=== PATIENT | female | born 1955 | race Caucasian/White ===

== ENCOUNTER 2020-10-22 04:18 | Inpatient (IN) ==
[2020-10-22] MEDS ORDERED: Melatonin 3 MG TABLET PO PRN (10:27)
[2020-10-22] MEDS ORDERED: Ondansetron 4 MG/2 ML VIAL IVP PRN (10:27)
[2020-10-22] MEDS ORDERED: D5% in Water 1,000 ML IVC PRN (10:32)
[2020-10-22] MEDS ORDERED: Dextrose Gel 15 GM/37.5 ML TUBE PO PRN ×2 (10:32)
[2020-10-22] MEDS ORDERED: *HR* Dextrose 50 % in Water (Vial) 50 ML VIAL IVP PRN (10:32)
[2020-10-22 11:30] LABS: Prothrombin Time 11.9 Seconds (9.4-12.1)
[2020-10-22 11:44] LABS: BUN/Creatinine Ratio 25 (6-26); Blood Urea Nitrogen 16 mg/dL (8-23); Carbon Dioxide 26 mEq/L (23-29); Chloride 107 mEq/L (98-107); Glucose 314 mg/dL (70-105); Magnesium 1.7 mg/dL (1.6-2.6); Osmolality,Calculated 303 (280-300); Phosphorous 2.8 mg/dL (2.7-4.5); Sodium 140 mEq/L (136-145); eGFR For African Americans > 60 (> 60); eGFR For Non-African Americans > 60 (> 60)
[2020-10-22] MEDS: Insulin LISPRO 300 UNITS/3 ML VIAL SUBQ SCH ×2 (12:15→17:02)
[2020-10-22] MEDS ORDERED: *HR* FentaNYL (PF) 100 MCG/2 ML VIAL IVP PRN (12:44)
[2020-10-22] MEDS ORDERED: *HR* Vasopressin 20 UNIT/ML VIAL ONE (12:47)
[2020-10-22 13:46] LABS: Influenza A PCR Negative (Negative); Influenza B PCR Negative (Negative); Resp. Syncytial Virus PCR Negative (Negative)
[2020-10-22 13:47] LABS: SARS-CoV-2 by PCR (In House) Negative (Negative)
[2020-10-22] MEDS ORDERED: *HR* Propofol 200 MG/20 ML VIAL IVP ONE (13:53)
[2020-10-22] MEDS ORDERED: Lidocaine -MPF 2% 2 ML VIAL ONE (13:53)
[2020-10-22 15:30] LABS: Hematocrit 17.9 % (35.3-44.9); Immature Platelets 6.5 % (1.1-6.1); Mean Corpuscular HGB Conc 27.4 g/dL (31.6-35.5); Mean Corpuscular Hemoglobin 25.1 pg (28.0-33.3); Mean Corpuscular Volume 91.8 fL (83.0-100.0); Mean Platelet Volume 11.2 fL (9.4-12.4); Red Blood Count 1.95 M/mcL (3.82-4.97); Red Cell Distribution Width 17.7 % (11.5-14.5); White Blood Count 4.5 K/mcL (4.3-11.1)
[2020-10-22 15:36] LABS: Hemoglobin 4.9 g/dL (11.5-15.4)
[2020-10-22] MEDS: Gabapentin 300 MG CAPSULE PO SCH ×2 (15:40→22:06)
[2020-10-22] MEDS: Pantoprazole 40 MG VIAL IVP SCH (17:00)
[2020-10-22] MEDS ORDERED: SODIUM CHLORIDE/NAHCO3/KCL/PEG 4,000 ML SOLN.RECON PO ONE (17:00)
[2020-10-22 17:20] LABS: Hemoglobin 5.8 g/dL (11.5-15.4)
[2020-10-22] MEDS ORDERED: 0.9 % Sodium Chloride 250 ML ONE (18:20)
[2020-10-22] MEDS: Acetaminophen 325 MG TABLET PO PRN (22:06)
[2020-10-22] MEDS: traZODone 50 MG TABLET PO SCH (22:06)
[2020-10-22] MEDS: Insulin DETEMIR 100 UNIT/ML X5UNITS SUBQ SCH (22:12)
[2020-10-23] MEDS: Insulin LISPRO 300 UNITS/3 ML VIAL SUBQ SCH ×4 (01:43→16:58)
[2020-10-23 04:55] LABS: Hematocrit 19.7 % (35.3-44.9); Mean Corpuscular HGB Conc 29.9 g/dL (31.6-35.5); Mean Corpuscular Hemoglobin 26.7 pg (28.0-33.3); Mean Corpuscular Volume 89.1 fL (83.0-100.0); Platelet Count 120 K/mcL (140-400); Red Blood Count 2.21 M/mcL (3.82-4.97); Red Cell Distribution Width 19.9 % (11.5-14.5); White Blood Count 3.5 K/mcL (4.3-11.1)
[2020-10-23 04:57] LABS: Hemoglobin 5.9 g/dL (11.5-15.4)
[2020-10-23] MEDS ORDERED: 0.9 % Sodium Chloride 250 ML ONE (05:50)
[2020-10-23] MEDS: Pantoprazole 40 MG VIAL IVP SCH ×2 (05:53→18:26)
[2020-10-23 06:38] LABS: BUN/Creatinine Ratio 23 (6-26); Blood Urea Nitrogen 10 mg/dL (8-23); Carbon Dioxide 24 mEq/L (23-29); Chloride 118 mEq/L (98-107); Glucose 114 mg/dL (70-105); Osmolality,Calculated 296 (280-300); Sodium 143 mEq/L (136-145); eGFR For African Americans > 60 (> 60); eGFR For Non-African Americans > 60 (> 60)
[2020-10-23] MEDS: Acetaminophen 325 MG TABLET PO PRN (06:59)
[2020-10-23 07:00] LABS: Calcium 5.5 mg/dL (8.6-10.3)
[2020-10-23] MEDS: Insulin DETEMIR 100 UNIT/ML X5UNITS SUBQ SCH ×2 (09:11→22:35)
[2020-10-23] MEDS ORDERED: Calcium Gluconate 1gm/50mL 1 GM/50 ML BAG IVPB PRN (09:12)
[2020-10-23] MEDS: Gabapentin 300 MG CAPSULE PO SCH ×3 (09:15→22:35)
[2020-10-23 09:33] LABS: Magnesium 1.2 mg/dL (1.6-2.6); Phosphorous 1.8 mg/dL (2.7-4.5)
[2020-10-23 10:59] LABS: Hematocrit 25.9 % (35.3-44.9); Hemoglobin 7.3 g/dL (11.5-15.4)
[2020-10-23 11:22] LABS: Albumin 2.9 g/dL (3.5-5.7); Albumin/Globulin Ratio 1.2 (1.1-2.2); Bilirubin,Direct 0.3 mg/dL (0.0-0.2); Bilirubin,Indirect 0.6 mg/dL (0.0-1.0); Bilirubin,Total 0.9 mg/dL (0.3-1.0); Globulin 2.4 g/dL (2.4-3.5); Total Protein 5.3 g/dL (6.4-8.9)
[2020-10-23] MEDS ORDERED: *HR* Succinylcholine 200 MG/10 ML VIAL IVP ONE ×2 (13:45→15:28)
[2020-10-23] MEDS ORDERED: Lidocaine -MPF 2% 2 ML VIAL ONE ×2 (13:45→13:52)
[2020-10-23] MEDS ORDERED: Lidocaine -MPF 2% 5 ML VIAL ONE (15:28)
[2020-10-23] MEDS: *HR* OxyCODONE/APAP 5/325 TABLET PO PRN ×2 (16:17→22:35)
[2020-10-23] MEDS: traZODone 50 MG TABLET PO SCH (22:35)
[2020-10-24] MEDS: Pantoprazole 40 MG VIAL IVP SCH ×2 (05:37→16:47)
[2020-10-24] MEDS: *HR* OxyCODONE/APAP 5/325 TABLET PO PRN ×3 (05:37→22:54)
[2020-10-24 06:27] LABS: Hematocrit 24.1 % (35.3-44.9); Hemoglobin 6.9 g/dL (11.5-15.4); Mean Corpuscular HGB Conc 28.6 g/dL (31.6-35.5); Mean Corpuscular Hemoglobin 26.5 pg (28.0-33.3); Mean Corpuscular Volume 92.7 fL (83.0-100.0); Mean Platelet Volume 10.8 fL (9.4-12.4); Platelet Count 142 K/mcL (140-400); Red Cell Distribution Width 17.4 % (11.5-14.5); White Blood Count 5.2 K/mcL (4.3-11.1)
[2020-10-24 06:55] LABS: Alanine Aminotransferase 12 Units/L (7-52); Albumin 2.7 g/dL (3.5-5.7); Albumin/Globulin Ratio 1.1 (1.1-2.2); Alkaline Phosphatase 57 Units/L (34-104); Aspartate Amino Transferase 13 Units/L (13-39); BUN/Creatinine Ratio 18 (6-26); Bilirubin,Total 0.8 mg/dL (0.3-1.0); Blood Urea Nitrogen 14 mg/dL (8-23); Calcium 7.5 mg/dL (8.6-10.3); Carbon Dioxide 32 mEq/L (23-29); Chloride 107 mEq/L (98-107); Globulin 2.4 g/dL (2.4-3.5); Glucose 264 mg/dL (70-105); Osmolality,Calculated 300 (280-300); Potassium 4.3 mEq/L (3.5-5.1); Sodium 140 mEq/L (136-145); Total Protein 5.1 g/dL (6.4-8.9); eGFR For African Americans > 60 (> 60); eGFR For Non-African Americans > 60 (> 60)
[2020-10-24] MEDS: Insulin LISPRO 300 UNITS/3 ML VIAL SUBQ SCH ×3 (08:20→16:46)
[2020-10-24] MEDS: Gabapentin 300 MG CAPSULE PO SCH ×5 (08:20→21:06)
[2020-10-24] MEDS: Insulin DETEMIR 100 UNIT/ML X5UNITS SUBQ SCH ×2 (08:22→21:07)
[2020-10-24] MEDS ORDERED: 0.9 % Sodium Chloride 250 ML IVC SCH (08:45)
[2020-10-24] MEDS ORDERED: 0.9 % Sodium Chloride 250 ML ONE (10:00)
[2020-10-24 18:00] LABS: Hematocrit 27.5 % (35.3-44.9); Hemoglobin 7.8 g/dL (11.5-15.4)
[2020-10-24] MEDS: traZODone 50 MG TABLET PO SCH (21:06)
[2020-10-24] MEDS: Magic Mouthwash 10 ML UD Cup PO SCH (22:24)
[2020-10-25] MEDS: Pantoprazole 40 MG VIAL IVP SCH ×2 (06:57→17:03)
[2020-10-25 06:58] LABS: Hematocrit 26.6 % (35.3-44.9); Hemoglobin 7.8 g/dL (11.5-15.4); Mean Corpuscular HGB Conc 29.3 g/dL (31.6-35.5); Mean Corpuscular Hemoglobin 26.7 pg (28.0-33.3); Mean Corpuscular Volume 91.1 fL (83.0-100.0); Mean Platelet Volume 10.7 fL (9.4-12.4); Platelet Count 129 K/mcL (140-400); Red Blood Count 2.92 M/mcL (3.82-4.97); Red Cell Distribution Width 17.6 % (11.5-14.5); White Blood Count 4.4 K/mcL (4.3-11.1)
[2020-10-25 07:57] LABS: Alanine Aminotransferase 9 Units/L (7-52); Albumin 2.7 g/dL (3.5-5.7); Alkaline Phosphatase 64 Units/L (34-104); Aspartate Amino Transferase 11 Units/L (13-39); BUN/Creatinine Ratio 24 (6-26); Bilirubin,Total 0.8 mg/dL (0.3-1.0); Blood Urea Nitrogen 17 mg/dL (8-23); Calcium 7.7 mg/dL (8.6-10.3); Carbon Dioxide 30 mEq/L (23-29); Chloride 105 mEq/L (98-107); Globulin 2.6 g/dL (2.4-3.5); Glucose 251 mg/dL (70-105); Osmolality,Calculated 302 (280-300); Potassium 4.1 mEq/L (3.5-5.1); Sodium 141 mEq/L (136-145); Total Protein 5.3 g/dL (6.4-8.9); eGFR For African Americans > 60 (> 60); eGFR For Non-African Americans > 60 (> 60)
[2020-10-25] MEDS: Gabapentin 300 MG CAPSULE PO SCH ×3 (08:40→21:58)
[2020-10-25] MEDS: Insulin DETEMIR 100 UNIT/ML X5UNITS SUBQ SCH ×2 (08:41→23:30)
[2020-10-25] MEDS: Magic Mouthwash 10 ML UD Cup PO SCH ×3 (08:41→17:10)
[2020-10-25] MEDS: Insulin LISPRO 300 UNITS/3 ML VIAL SUBQ SCH ×3 (08:41→17:04)
[2020-10-25] MEDS: *HR* OxyCODONE/APAP 5/325 TABLET PO PRN ×2 (10:06→17:10)
[2020-10-25] MEDS: Fluconazole 100 MG TABLET PO SCH (11:55)
[2020-10-25] MEDS: traZODone 50 MG TABLET PO SCH (21:58)
[2020-10-26] MEDS: *HR* OxyCODONE/APAP 5/325 TABLET PO PRN ×2 (00:11→08:00)
[2020-10-26 06:08] LABS: Hematocrit 27.5 % (35.3-44.9); Hemoglobin 8.2 g/dL (11.5-15.4); Mean Corpuscular HGB Conc 29.8 g/dL (31.6-35.5); Mean Corpuscular Volume 90.5 fL (83.0-100.0); Mean Platelet Volume 10.7 fL (9.4-12.4); Platelet Count 135 K/mcL (140-400); Red Blood Count 3.04 M/mcL (3.82-4.97); Red Cell Distribution Width 17.4 % (11.5-14.5); White Blood Count 4.4 K/mcL (4.3-11.1)
[2020-10-26 06:18] LABS: BUN/Creatinine Ratio 25 (6-26); Blood Urea Nitrogen 15 mg/dL (8-23); Calcium 8.1 mg/dL (8.6-10.3); Carbon Dioxide 33 mEq/L (23-29); Chloride 107 mEq/L (98-107); Glucose 226 mg/dL (70-105); Osmolality,Calculated 296 (280-300); Potassium 4.1 mEq/L (3.5-5.1); Sodium 139 mEq/L (136-145); eGFR For African Americans > 60 (> 60); eGFR For Non-African Americans > 60 (> 60)
[2020-10-26 07:26] VITALS: BP 123/70; PULSE 84; TEMP 97.8; O2SAT 91
[2020-10-26] MEDS: Pantoprazole 40 MG VIAL IVP SCH (07:50)
[2020-10-26] MEDS: Insulin LISPRO 300 UNITS/3 ML VIAL SUBQ SCH (07:50)
[2020-10-26] MEDS: Fluconazole 100 MG TABLET PO SCH (07:51)
[2020-10-26] MEDS: Gabapentin 300 MG CAPSULE PO SCH (07:51)
[2020-10-26] MEDS: Magic Mouthwash 10 ML UD Cup PO SCH (07:54)
[2020-10-26] MEDS: Insulin DETEMIR 100 UNIT/ML X5UNITS SUBQ SCH (07:54)
[2020-10-26 09:07] LABS: Adenovirus Not Detected (Not Detect); Bordetella Pertussis Not Detected (Not Detect); Chlamydophila pneumoniae Not Detected (Not Detect); Coronavirus 229E Not Detected (Not Detect); Coronavirus HKU1 Not Detected (Not Detect); Coronavirus NL63 Not Detected (Not Detect); Coronavirus OC43 Not Detected (Not Detect); Human Metapneumovirus Not Detected (Not Detect); Human Rhinovirus/Enterovirus Not Detected (Not Detect); Influenza A Subtype 2009 H1 Not Detected (Not Detect); Influenza B Not Detected (Not Detect); Mycoplasma pneumoniae Not Detected (Not Detect); Parainfluenza Virus 1 Not Detected (Not Detect); Parainfluenza Virus 2 Not Detected (Not Detect); Parainfluenza Virus 3 Not Detected (Not Detect); Parainfluenza Virus 4 Not Detected (Not Detect); Respiratory Syncytial Virus Not Detected (Not Detect); SARS-CoV-2 Not Detected (Not Detect)
== END 2020-10-26 09:05 | DRG 386 ==
LOC: 3ANU → SUATTDRO 10:05
PROVIDERS: ADMIT Family Medicine; ATTEND Internal Medicine

== ENCOUNTER 2020-10-29 12:29 | Observation (INO) ==
[2020-10-29] MEDS ORDERED: Naloxone 0.4 MG/ML INJ IVP PRN (17:35)
[2020-10-29] MEDS ORDERED: D5% in Water 1,000 ML IVC PRN (17:43)
[2020-10-29] MEDS ORDERED: *HR* Dextrose 50 % in Water (Vial) 50 ML VIAL IVP PRN (17:43)
[2020-10-29] MEDS ORDERED: Dextrose Gel 15 GM/37.5 ML TUBE PO PRN ×2 (17:43)
[2020-10-29] MEDS: Insulin LISPRO 300 UNITS/3 ML VIAL SUBQ SCH ×2 (18:07→21:38)
[2020-10-29] MEDS ORDERED: Isovue-370 500 ML BOTTLE IVP ONE (18:18)
[2020-10-29 18:53] LABS: Alanine Aminotransferase 9 Units/L (7-52); Albumin 2.8 g/dL (3.5-5.7); Albumin/Globulin Ratio 1.1 (1.1-2.2); Alkaline Phosphatase 66 Units/L (34-104); Aspartate Amino Transferase 21 Units/L (13-39); BUN/Creatinine Ratio 17 (6-26); Bilirubin,Total 0.9 mg/dL (0.3-1.0); Blood Urea Nitrogen 9 mg/dL (8-23); Calcium 8.1 mg/dL (8.6-10.3); Carbon Dioxide 31 mEq/L (23-29); Chloride 108 mEq/L (98-107); Globulin 2.6 g/dL (2.4-3.5); Glucose 192 mg/dL (70-105); Osmolality,Calculated 304 (280-300); Potassium 4.4 mEq/L (3.5-5.1); Sodium 145 mEq/L (136-145); Total Protein 5.4 g/dL (6.4-8.9); Troponin I < 0.03 ng/mL (< 0.04); eGFR For African Americans > 60 (> 60); eGFR For Non-African Americans > 60 (> 60)
[2020-10-29 20:02] LABS: Basophils % 0.3 %; Immature Granulocytes % 0.3 % (0-4); Monocytes % 9.1 %
[2020-10-29 20:03] LABS: Eosinophils # 0.1 K/mcL (0.0-0.6); Eosinophils % 1.6 %; Hematocrit 24.8 % (35.3-44.9); Hemoglobin 7.1 g/dL (11.5-15.4); Lymphocytes % 48.4 %; Mean Corpuscular HGB Conc 28.6 g/dL (31.6-35.5); Mean Corpuscular Hemoglobin 26.2 pg (28.0-33.3); Mean Corpuscular Volume 91.5 fL (83.0-100.0); Monocytes # 0.3 K/mcL (0.0-1.3); Neutrophils # 1.5 K/mcL (1.6-8.9); Platelet Count 114 K/mcL (140-400); Red Blood Count 2.71 M/mcL (3.82-4.97); Red Cell Distribution Width 17.9 % (11.5-14.5); Segmented Neutrophils % 40.3 %; White Blood Count 3.6 K/mcL (4.3-11.1)
[2020-10-29 20:10] LABS: Lymphocytes # 1.7 K/mcL (0.6-4.6)
[2020-10-29 20:42] LABS: % Iron Saturation 6 % (15-50); Ferritin 139 ng/mL (10-120); Iron 20 mcg/dL (50-170); Transferrin 227 mg/dL (203-362)
[2020-10-29 20:45] LABS: Anisocytosis 1+ (Not Present); Hypochromasia Present (Not Present); Microcytosis Present (Not Present); Platelet Estimate Slight Decrease (Normal)
[2020-10-29] MEDS: Iron Sucrose Complex 200 MG in 0.9 % Sodium Chloride 100 ML IVPB SCH (21:37)
[2020-10-29] MEDS: *HR* OxyCODONE/APAP 5/325 TABLET PO PRN (22:22)
[2020-10-29] MEDS: Pantoprazole 40 MG VIAL IVP SCH (22:22)
[2020-10-30] MEDS: Insulin LISPRO 300 UNITS/3 ML VIAL SUBQ SCH ×6 (01:21→23:43)
[2020-10-30 03:43] LABS: Basophils % 0.3 %; Eosinophils # 0.1 K/mcL (0.0-0.6); Eosinophils % 1.5 %; Hematocrit 23.7 % (35.3-44.9); Hemoglobin 6.5 g/dL (11.5-15.4); Immature Granulocytes % 0.3 % (0-4); Immature Platelets 3.8 % (1.1-6.1); Lymphocytes # 1.6 K/mcL (0.6-4.6); Lymphocytes % 47.3 %; Mean Corpuscular HGB Conc 27.4 g/dL (31.6-35.5); Mean Corpuscular Hemoglobin 25.1 pg (28.0-33.3); Mean Corpuscular Volume 91.5 fL (83.0-100.0); Mean Platelet Volume 9.6 fL (9.4-12.4); Monocytes # 0.3 K/mcL (0.0-1.3); Monocytes % 10.4 %; Neutrophils # 1.3 K/mcL (1.6-8.9); Platelet Count 112 K/mcL (140-400); Red Blood Count 2.59 M/mcL (3.82-4.97); Red Cell Distribution Width 17.9 % (11.5-14.5); Segmented Neutrophils % 40.2 %; White Blood Count 3.3 K/mcL (4.3-11.1)
[2020-10-30 04:02] LABS: Anisocytosis 1+ (Not Present); Hypochromasia Present (Not Present); Microcytosis Present (Not Present); Platelet Estimate Slight Decrease (Normal)
[2020-10-30 04:06] LABS: BUN/Creatinine Ratio 15 (6-26); Blood Urea Nitrogen 8 mg/dL (8-23); Calcium 7.8 mg/dL (8.6-10.3); Carbon Dioxide 34 mEq/L (23-29); Chloride 105 mEq/L (98-107); Glucose 150 mg/dL (70-105); Osmolality,Calculated 295 (280-300); Potassium 3.6 mEq/L (3.5-5.1); Sodium 142 mEq/L (136-145); eGFR For African Americans > 60 (> 60); eGFR For Non-African Americans > 60 (> 60)
[2020-10-30 04:07] LABS: Magnesium 1.5 mg/dL (1.6-2.6); Phosphorous 2.4 mg/dL (2.7-4.5)
[2020-10-30] MEDS ORDERED: 0.9 % Sodium Chloride 250 ML ONE (04:46)
[2020-10-30] MEDS: Pantoprazole 40 MG VIAL IVP SCH ×2 (05:53→18:14)
[2020-10-30] MEDS: Iron Sucrose Complex 200 MG in 0.9 % Sodium Chloride 100 ML IVPB SCH (09:48)
[2020-10-30] MEDS ORDERED: Furosemide 40 MG/4 ML VIAL IVP SCH (10:15)
[2020-10-30] MEDS: *HR* OxyCODONE/APAP 5/325 TABLET PO PRN (11:02)
[2020-10-30] MEDS ORDERED: Furosemide 40 MG/4 ML VIAL IVP ONE (11:06)
[2020-10-30 12:13] LABS: Hematocrit 27.6 % (35.3-44.9); Immature Platelets 6.2 % (1.1-6.1); Mean Corpuscular Hemoglobin 25.6 pg (28.0-33.3); Mean Corpuscular Volume 88.2 fL (83.0-100.0); Mean Platelet Volume 10.9 fL (9.4-12.4); Red Blood Count 3.13 M/mcL (3.82-4.97); Red Cell Distribution Width 17.4 % (11.5-14.5); White Blood Count 3.4 K/mcL (4.3-11.1)
[2020-10-30] MEDS ORDERED: Magnesium Oxide 400 MG TABLET PO PRN (13:33)
[2020-10-30] MEDS: Gabapentin 300 MG CAPSULE PO SCH ×2 (15:20→20:19)
[2020-10-30] MEDS: Ondansetron 4 MG/2 ML VIAL IVP PRN (17:23)
[2020-10-30] MEDS: Fluconazole 100 MG TABLET PO SCH (20:18)
[2020-10-30] MEDS ORDERED: traZODone 50 MG TABLET PO SCH (21:00)
[2020-10-31] MEDS: Pantoprazole 40 MG VIAL IVP SCH (05:32)
[2020-10-31] MEDS: Insulin LISPRO 300 UNITS/3 ML VIAL SUBQ SCH ×2 (05:33→11:51)
[2020-10-31] MEDS: *HR* OxyCODONE/APAP 5/325 TABLET PO PRN (05:40)
[2020-10-31 05:56] LABS: Basophils % 0.2 %; Eosinophils % 1.2 %; Hemoglobin 7.7 g/dL (11.5-15.4); Mean Corpuscular Hemoglobin 25.6 pg (28.0-33.3); Red Blood Count 3.01 M/mcL (3.82-4.97); Segmented Neutrophils % 52.2 %
[2020-10-31 05:58] LABS: Eosinophils # 0.1 K/mcL (0.0-0.6); Hematocrit 27.1 % (35.3-44.9); Immature Granulocytes % 0.7 % (0-4); Immature Platelets 5.5 % (1.1-6.1); Lymphocytes # 1.5 K/mcL (0.6-4.6); Lymphocytes % 35.2 %; Mean Corpuscular HGB Conc 28.4 g/dL (31.6-35.5); Mean Platelet Volume 10.6 fL (9.4-12.4); Monocytes # 0.4 K/mcL (0.0-1.3); Monocytes % 10.5 %; Neutrophils # 2.2 K/mcL (1.6-8.9); Platelet Count 104 K/mcL (140-400); Red Cell Distribution Width 17.9 % (11.5-14.5); White Blood Count 4.2 K/mcL (4.3-11.1)
[2020-10-31 06:03] LABS: BUN/Creatinine Ratio 14 (6-26); Blood Urea Nitrogen 11 mg/dL (8-23); Calcium 8.1 mg/dL (8.6-10.3); Carbon Dioxide 35 mEq/L (23-29); Chloride 103 mEq/L (98-107); Glucose 242 mg/dL (70-105); Osmolality,Calculated 299 (280-300); Sodium 141 mEq/L (136-145); eGFR For African Americans > 60 (> 60); eGFR For Non-African Americans > 60 (> 60)
[2020-10-31] MEDS: Fluconazole 100 MG TABLET PO SCH (07:39)
[2020-10-31] MEDS: Gabapentin 300 MG CAPSULE PO SCH ×2 (07:39→15:13)
[2020-10-31] MEDS: Ondansetron 4 MG/2 ML VIAL IVP PRN (07:42)
[2020-10-31] MEDS: Iron Sucrose Complex 200 MG in 0.9 % Sodium Chloride 100 ML IVPB SCH (09:12)
[2020-10-31 11:52] VITALS: BP 123/69; PULSE 72; TEMP 98.6; O2SAT 98
== END 2020-10-31 15:33 ==
LOC: 3BNU → SUATTDRO 14:38
PROVIDERS: ADMIT Pharmacist; ATTEND Student in an Organized Health Care Education/Training Program

== ENCOUNTER 2021-05-18 15:17 | Inpatient (IN) ==
[2021-05-18] MEDS ORDERED: Ondansetron 4 MG/2 ML VIAL IVP PRN (17:45)
[2021-05-18] MEDS ORDERED: Acetaminophen 325 MG TABLET PO PRN (17:45)
[2021-05-18] MEDS ORDERED: Dextrose Gel 15 GM/37.5 ML TUBE PO PRN ×2 (17:45)
[2021-05-18] MEDS ORDERED: *HR* Dextrose 50 % in Water (Syg) 50 ML SYRINGE IVP PRN (17:45)
[2021-05-18] MEDS ORDERED: Naloxone 0.4 MG/ML INJ IVP PRN (17:45)
[2021-05-18] MEDS ORDERED: D5% in Water 1,000 ML IVC PRN (17:45)
[2021-05-18] MEDS ORDERED: *HR* HYDROcodone/Acet 5/325 mg TABLET PO PRN (17:51)
[2021-05-18] MEDS: *HR* Heparin 5,000 UNIT/ML VIAL SQ SCH (17:53)
[2021-05-18] MEDS: *HR* OxyCODONE Immed Rel 5 MG TABLET PO PRN (18:06)
[2021-05-18] MEDS: *HR* HYDROmorphone 2 MG/ML SYRINGE IVP PRN (20:23)
[2021-05-18] MEDS: Insulin LISPRO 300 UNITS/3 ML VIAL SUBQ SCH (22:25)
[2021-05-18] MEDS: Insulin DETEMIR 100 UNIT/ML X5UNITS SUBQ SCH (22:25)
[2021-05-18] MEDS: Gabapentin 300 MG CAPSULE PO SCH (22:25)
[2021-05-19] MEDS: *HR* HYDROmorphone 2 MG/ML SYRINGE IVP PRN ×2 (00:30→04:48)
[2021-05-19] MEDS: *HR* OxyCODONE Immed Rel 5 MG TABLET PO PRN ×2 (03:52→20:57)
[2021-05-19] MEDS: *HR* Heparin 5,000 UNIT/ML VIAL SQ SCH ×2 (04:48→17:41)
[2021-05-19 07:23] LABS: Hemoglobin 12.4 g/dL (11.5-15.4); Mean Corpuscular Volume 92.9 fL (83.0-100.0)
[2021-05-19 07:25] LABS: Basophils % 0.3 %; Eosinophils # 0.1 K/mcL (0.0-0.6); Eosinophils % 0.9 %; Hematocrit 38.1 % (35.3-44.9); Immature Granulocytes % 0.3 % (0-4); Immature Platelets 4.4 % (1.1-6.1); Lymphocytes # 1.8 K/mcL (0.6-4.6); Lymphocytes % 24.1 %; Mean Corpuscular HGB Conc 32.5 g/dL (31.6-35.5); Mean Corpuscular Hemoglobin 30.2 pg (28.0-33.3); Mean Platelet Volume 11.2 fL (9.4-12.4); Monocytes # 0.5 K/mcL (0.0-1.3); Monocytes % 6.9 %; Platelet Count 106 K/mcL (140-400); Red Cell Distribution Width 14.8 % (11.5-14.5); Segmented Neutrophils % 67.5 %; White Blood Count 7.4 K/mcL (4.3-11.1)
[2021-05-19] MEDS ORDERED: *HR* Magnesium Sulfate 1 GM/2 ML VIAL ONE (07:34)
[2021-05-19] MEDS ORDERED: Ondansetron 4 MG/2 ML VIAL ONE (07:40)
[2021-05-19] MEDS ORDERED: *HR* Rocuronium Bromide 50 MG/5 ML VIAL ONE ×2 (07:40→09:45)
[2021-05-19] MEDS ORDERED: *HR* Propofol 200 MG/20 ML VIAL IVP ONE (07:41)
[2021-05-19] MEDS ORDERED: Ketamine HCL *QUVA* 50mg (1mL) SYRINGE ONE (07:41)
[2021-05-19] MEDS ORDERED: *HR* Midazolam HCl 2 MG/2 ML VIAL ONE (07:41)
[2021-05-19] MEDS ORDERED: *HR* FentaNYL (PF) 100 MCG/2 ML VIAL ONE (07:41)
[2021-05-19] MEDS: Gabapentin 300 MG CAPSULE PO SCH ×3 (07:42→20:57)
[2021-05-19] MEDS: Acetaminophen IV 1,000 MG/100 ML BAG IVPB ONE ×2 (07:42→07:53)
[2021-05-19] MEDS: Insulin LISPRO 300 UNITS/3 ML VIAL SUBQ SCH ×4 (07:42→21:03)
[2021-05-19 07:45] LABS: BUN/Creatinine Ratio 16 (6-26); Blood Urea Nitrogen 15 mg/dL (8-23); Calcium 8.1 mg/dL (8.6-10.3); Carbon Dioxide 28 mEq/L (23-29); Chloride 100 mEq/L (98-107); Glucose 364 mg/dL (70-105); INR 1.2; Magnesium 1.3 mg/dL (1.6-2.6); Osmolality,Calculated 290 (280-300); Prothrombin Time 13.4 Seconds (9.4-12.1); Sodium 132 mEq/L (136-145); eGFR For African Americans > 60 (> 60); eGFR For Non-African Americans 59 (> 60)
[2021-05-19 07:47] LABS: Platelet Estimate Slight Decrease (Normal)
[2021-05-19 07:48] LABS: Activated Partial Thrombo Time 42.1 Seconds (26.0-36.0)
[2021-05-19] MEDS ORDERED: Acetaminophen IV 1,000 MG/100 ML BAG IVPB ONE ×2 (07:49→09:01)
[2021-05-19] MEDS ORDERED: Famotidine 20 MG/2 ML VIAL IVP ONE ×2 (08:00→09:01)
[2021-05-19] MEDS ORDERED: Ringers Solution, Lactated 1,000 ML IVC SCH (08:00)
[2021-05-19] MEDS: *HR* HYDROmorphone (PF) 1 MG/ML SYRINGE IVP SCH ×2 (08:25→08:41)
[2021-05-19] MEDS ORDERED: Pregabalin 75 MG CAPSULE PO ONE (09:01)
[2021-05-19] MEDS ORDERED: *HR* OxyCODONE Immed Rel 5 MG TABLET PO PRN (09:01)
[2021-05-19] MEDS ORDERED: *HR* Promethazine 25 MG/ML VIAL IVPB PRN (09:01)
[2021-05-19] MEDS ORDERED: *HR* Labetalol 20 MG/4 ML SYRINGE IVP PRN (09:01)
[2021-05-19] MEDS ORDERED: *HR* HYDROmorphone 2 MG TABLET PO PRN (09:01)
[2021-05-19] MEDS ORDERED: EPHEDrine 50 MG/ML VIAL ONE (09:04)
[2021-05-19] MEDS ORDERED: *HR* Vasopressin 20 UNIT/ML VIAL ONE (09:05)
[2021-05-19] MEDS ORDERED: *HR* Phenylephrine 10 MG/ML VIAL ONE (09:07)
[2021-05-19] MEDS ORDERED: Albumin Human 5% 25.0 GM/500 ML IV.SOLN ONE (09:25)
[2021-05-19] MEDS ORDERED: Vancomycin 1,000 MG VIAL ONE (10:50)
[2021-05-19] MEDS ORDERED: *HR* HYDROMORPHONE 2 MG/ML VIAL ONE (11:28)
[2021-05-19] MEDS: *HR* HYDROmorphone (PF) 1 MG/ML SYRINGE IVP PRN ×2 (12:06→12:21)
[2021-05-19] MEDS ORDERED: 0.9 % Sodium Chloride 500 ML IVC ONE (16:01)
[2021-05-19] MEDS: ceFAZolin 3,000 MG in 0.9 % Sodium Chloride 100 ML IVPB SCH (17:41)
[2021-05-19] MEDS: Insulin DETEMIR 100 UNIT/ML X5UNITS SUBQ SCH (20:57)
[2021-05-19] MEDS ORDERED: Gabapentin 300 MG CAPSULE PO SCH (21:00)
[2021-05-20] MEDS: *HR* HYDROcodone/Acet 5/325 mg TABLET PO PRN ×4 (00:04→18:15)
[2021-05-20] MEDS: *HR* OxyCODONE Immed Rel 5 MG TABLET PO PRN ×3 (02:57→16:57)
[2021-05-20] MEDS: ceFAZolin 3,000 MG in 0.9 % Sodium Chloride 100 ML IVPB SCH (03:01)
[2021-05-20 03:23] LABS: Basophils % 0.3 %; Hematocrit 33.2 % (35.3-44.9); Hemoglobin 10.4 g/dL (11.5-15.4); Immature Granulocytes % 0.2 % (0-4); Lymphocytes # 1.3 K/mcL (0.6-4.6); Lymphocytes % 23.1 %; Mean Corpuscular HGB Conc 31.3 g/dL (31.6-35.5); Mean Corpuscular Hemoglobin 30.3 pg (28.0-33.3); Mean Corpuscular Volume 96.8 fL (83.0-100.0); Mean Platelet Volume 11.3 fL (9.4-12.4); Monocytes # 0.5 K/mcL (0.0-1.3); Monocytes % 9.2 %; Neutrophils # 3.9 K/mcL (1.6-8.9); Platelet Count 84 K/mcL (140-400); Red Blood Count 3.43 M/mcL (3.82-4.97); Red Cell Distribution Width 14.6 % (11.5-14.5); Segmented Neutrophils % 67.2 %; White Blood Count 5.8 K/mcL (4.3-11.1)
[2021-05-20 03:45] LABS: BUN/Creatinine Ratio 23 (6-26); Blood Urea Nitrogen 18 mg/dL (8-23); Calcium 7.8 mg/dL (8.6-10.3); Carbon Dioxide 23 mEq/L (23-29); Chloride 102 mEq/L (98-107); Glucose 334 mg/dL (70-105); Magnesium 1.9 mg/dL (1.6-2.6); Osmolality,Calculated 289 (280-300); Potassium 4.6 mEq/L (3.5-5.1); Sodium 132 mEq/L (136-145); eGFR For African Americans > 60 (> 60); eGFR For Non-African Americans > 60 (> 60)
[2021-05-20] MEDS: *HR* Heparin 5,000 UNIT/ML VIAL SQ SCH ×2 (06:18→16:53)
[2021-05-20] MEDS: Gabapentin 300 MG CAPSULE PO SCH ×3 (07:56→21:40)
[2021-05-20] MEDS: Insulin LISPRO 300 UNITS/3 ML VIAL SUBQ SCH ×4 (08:02→21:41)
[2021-05-20] MEDS ORDERED: Sennosides 8.6 MG TABLET PO PRN (10:55)
[2021-05-20] MEDS ORDERED: Insulin DETEMIR 100 UNIT/ML X5UNITS SUBQ SCH (21:00)
[2021-05-21] MEDS: *HR* Heparin 5,000 UNIT/ML VIAL SQ SCH (06:07)
[2021-05-21] MEDS: *HR* OxyCODONE Immed Rel 5 MG TABLET PO PRN ×4 (06:07→23:53)
[2021-05-21] MEDS: Gabapentin 300 MG CAPSULE PO SCH ×3 (07:46→21:23)
[2021-05-21 07:55] LABS: Basophils % 0.3 %; Eosinophils # 0.1 K/mcL (0.0-0.6); Hematocrit 32.6 % (35.3-44.9); Hemoglobin 10.3 g/dL (11.5-15.4); Immature Granulocytes % 0.5 % (0-4); Lymphocytes % 32.5 %; Mean Corpuscular HGB Conc 31.6 g/dL (31.6-35.5); Mean Platelet Volume 11.3 fL (9.4-12.4); Monocytes # 0.5 K/mcL (0.0-1.3); Monocytes % 8.7 %; Neutrophils # 3.5 K/mcL (1.6-8.9); Platelet Count 101 K/mcL (140-400); Red Blood Count 3.43 M/mcL (3.82-4.97); Red Cell Distribution Width 14.9 % (11.5-14.5); White Blood Count 6.1 K/mcL (4.3-11.1)
[2021-05-21 08:16] LABS: BUN/Creatinine Ratio 30 (6-26); Blood Urea Nitrogen 21 mg/dL (8-23); Calcium 8.5 mg/dL (8.6-10.3); Carbon Dioxide 29 mEq/L (23-29); Chloride 102 mEq/L (98-107); Glucose 300 mg/dL (70-105); Magnesium 1.7 mg/dL (1.6-2.6); Osmolality,Calculated 296 (280-300); Potassium 4.4 mEq/L (3.5-5.1); Sodium 136 mEq/L (136-145); eGFR For African Americans > 60 (> 60); eGFR For Non-African Americans > 60 (> 60)
[2021-05-21] MEDS: Insulin LISPRO 300 UNITS/3 ML VIAL SUBQ SCH ×4 (09:32→21:24)
[2021-05-21] MEDS: Insulin DETEMIR 100 UNIT/ML X5UNITS SUBQ SCH ×2 (12:08→21:23)
[2021-05-21] MEDS: Aspirin Enteric Coated 325 MG Tablet PO SCH (12:11)
[2021-05-22] MEDS: *HR* OxyCODONE Immed Rel 5 MG TABLET PO PRN ×2 (03:53→08:46)
[2021-05-22 06:01] LABS: Basophils % 0.3 %; Eosinophils # 0.1 K/mcL (0.0-0.6); Eosinophils % 1.1 %; Hematocrit 32.1 % (35.3-44.9); Immature Granulocytes % 0.5 % (0-4); Lymphocytes # 2.4 K/mcL (0.6-4.6); Lymphocytes % 38.1 %; Mean Corpuscular HGB Conc 31.2 g/dL (31.6-35.5); Mean Corpuscular Hemoglobin 29.6 pg (28.0-33.3); Mean Platelet Volume 11.2 fL (9.4-12.4); Monocytes # 0.6 K/mcL (0.0-1.3); Neutrophils # 3.2 K/mcL (1.6-8.9); Platelet Count 115 K/mcL (140-400); Red Blood Count 3.38 M/mcL (3.82-4.97); Red Cell Distribution Width 14.6 % (11.5-14.5); White Blood Count 6.3 K/mcL (4.3-11.1)
[2021-05-22 06:17] LABS: BUN/Creatinine Ratio 34 (6-26); Blood Urea Nitrogen 21 mg/dL (8-23); Calcium 8.5 mg/dL (8.6-10.3); Carbon Dioxide 32 mEq/L (23-29); Chloride 99 mEq/L (98-107); Glucose 264 mg/dL (70-105); Magnesium 1.5 mg/dL (1.6-2.6); Osmolality,Calculated 292 (280-300); Sodium 135 mEq/L (136-145); eGFR For African Americans > 60 (> 60); eGFR For Non-African Americans > 60 (> 60)
[2021-05-22 08:22] VITALS: TEMP 98.2; O2SAT 94
[2021-05-22] MEDS: Aspirin Enteric Coated 325 MG Tablet PO SCH (08:37)
[2021-05-22] MEDS: Insulin LISPRO 300 UNITS/3 ML VIAL SUBQ SCH ×2 (08:38→12:00)
[2021-05-22] MEDS: Gabapentin 300 MG CAPSULE PO SCH ×2 (08:38→15:50)
[2021-05-22] MEDS: Insulin DETEMIR 100 UNIT/ML X5UNITS SUBQ SCH (08:38)
[2021-05-22] MEDS ORDERED: *HR* OxyCODONE/APAP 7.5/325 TABLET PO PRN (09:21)
[2021-05-22 10:29] VITALS: BP 107/69; PULSE 75
[2021-05-22 10:53] LABS: Adenovirus Not Detected (Not Detect); Bordetella Pertussis Not Detected (Not Detect); Chlamydophila pneumoniae Not Detected (Not Detect); Coronavirus 229E Not Detected (Not Detect); Coronavirus HKU1 Not Detected (Not Detect); Coronavirus NL63 Not Detected (Not Detect); Coronavirus OC43 Not Detected (Not Detect); Human Metapneumovirus Not Detected (Not Detect); Human Rhinovirus/Enterovirus Not Detected (Not Detect); Influenza A Subtype 2009 H1 Not Detected (Not Detect); Influenza B Not Detected (Not Detect); Mycoplasma pneumoniae Not Detected (Not Detect); Parainfluenza Virus 1 Not Detected (Not Detect); Parainfluenza Virus 2 Not Detected (Not Detect); Parainfluenza Virus 3 Not Detected (Not Detect); Parainfluenza Virus 4 Not Detected (Not Detect); Respiratory Syncytial Virus Not Detected (Not Detect); SARS-CoV-2 Not Detected (Not Detect)
== END 2021-05-22 17:30 | DRG 481 ==
LOC: 4WAOSI → SUATTDRO 17:14
PROVIDERS: ADMIT Student in an Organized Health Care Education/Training Program; ATTEND Pharmacist